=== PATIENT | male | born 1955 | race Hispanic/Latino ===

== ENCOUNTER → 2017-11-02 | Outpatient (CLI) | payer BC ==
[~2017-11-02] MED LIST: GADOBENATE DIMEGLUMINE 1 ML IV ONE; SODIUM CHLORIDE 0.9% 50ML 50 ML ONE
[2017-11-02 08:07] LABS: BLOOD UREA NITROGEN 15 mg/dL (7-26); BUN/CREATININE RATIO 15 (6-25); CREATININE, SERUM 1.01 mg/dL (0.72-1.25); EST GLOMERULAR FILTRATION RATE > 60 ML/MIN (60-)
--- NOTE | 2017-11-02 10:06 | Diagnostic Imaging Report ---
History: Follow-up pituitary tumor Comparison studies: Multiple MRI brain dating back 12/29/2011, the most recent 10/26/2016. TECHNIQUE: Thin section images of the sella consisting of coronal dynamic T1, sagittal and coronal T1 pre/post contrast, coronal T2. Whole brain DWI/ADC. Intravenous Contrast: 15 mL of MultiHance. FINDINGS: Pituitary gland: Large sellar/suprasellar macroadenoma, currently measuring approximately 2.6 x 1.6 x 1.7 cm (SI-AP-Trans) measurements may slightly vary depending on the plain in which the scan was performed, technical factors and measurements orientation in addition to changes in the lesion size; the lesion previously measured approximately 2.4 cm x 1.5 x 1.6 cm (SI x AP x TV) when using similar measurements orientation at this time for both studies. The maximum superior to inferior dimension remains in the range of 2.3 to 2.6 cm with about 2 to 3 mm difference in between the 2 studies. Again a small 4-mm intrinsically T1 hyperintense focus, located in the suprasellar cistern, posterior to and to the right of midline of the adenoma likely corresponds to the neurohypophysis. Sella turcica: Stable mild enlargement. Pituitary stalk: Displaced superiorly and anteriorly, inseparable from the superior margin of the adenoma. Unchanged. Optic chiasm: Persistent mild superior displacement by suprasellar extension of adenoma. No associated signal abnormalities within the optic chiasm. Cavernous sinuses: Mass abuts the margins of the left greater than right cavernous sinuses, unchanged minimal extension on the left. Normal flow void in the bilateral carotid arteries. Visualized brain parenchyma: Unremarkable. 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 IMPRESSION: Accounting for the differences in technique, scanned plane and measurements orientation there is minimal interval increase in the largest superior to inferior dimension of pituitary gland macroadenoma when compared to MRI of 10/26/2016. The study was interpreted by Drs. Davis and Concepcion. Signed by: Dr. Bell Javier M.D. on 11/07/2017 8:30 AM
== END ==
LOC: MRI 07:20
PROVIDERS: ATTEND Radiology Neuroradiology
DX: D35.2 Benign neoplasm of pituitary gland (principal)
CPT/HCPCS: 36415; 70553; 82565; 84520

== ENCOUNTER 2021-12-25 11:47 | Emergency (ER) | payer BC, MEDICARE ==
[~2021-12-25] VITALS: Ht 170.2 cm; Wt 76.3 kg
[2021-12-25] MEDS ORDERED: PLAVIX75 MG PO (12:01)
[2021-12-25] MEDS ORDERED: ATORVASTATIN CA20 MG PO (12:01)
[2021-12-25] MEDS ORDERED: FAMCICLOVIR500 MG PO (12:11)
[2021-12-25] MEDS ORDERED: NEURONTIN100 MG PO (12:11)
[2021-12-25] MEDS ORDERED: PREDNISONE20 MG PO (12:11)
== END 2021-12-25 12:22 | disposition home or self-care (01) ==
LOC: FSED 11:55
DX: B02.9 Zoster without complications (principal); E78.5 Hyperlipidemia, unspecified; I25.10 Atherosclerotic heart disease of native coronary artery without angina pectoris; Z95.5 Presence of coronary angioplasty implant and graft
CPT/HCPCS: 99282

== ENCOUNTER 2025-04-15 19:33 | Emergency (ER) | payer MEDICARE ==
[~2025-04-15] VITALS: Ht 170.2 cm; Wt 76.7 kg
[~2025-04-15 19:33] MED LIST changes: +ATORVASTATIN CA20 MG PO; +FAMCICLOVIR500 MG PO; -GADOBENATE DIMEGLUMINE 1 ML IV ONE; +NEURONTIN100 MG PO; +PLAVIX75 MG PO; +PREDNISONE20 MG PO; -SODIUM CHLORIDE 0.9% 50ML 50 ML ONE
[2025-04-15] MEDS: HYDROCODONE/APAP 5MG-325MG TAB PO ONE (20:51)
[2025-04-15 22:37] VITALS: PULSE 56; RESP 18; TEMP 98
[2025-04-15 23:18] VITALS: BP 158/74; PULSE 56; RESP 18; O2SAT 99
== END 2025-04-15 23:00 | disposition home or self-care (01) ==
LOC: FSED 19:38
DX: S42.031A Displaced fracture of lateral end of right clavicle, initial encounter for closed fracture (principal); S80.211A Abrasion, right knee, initial encounter; W22.09XA Striking against other stationary object, initial encounter; Y93.01 Activity, walking, marching and hiking; Y92.89 Other specified places as the place of occurrence of the external cause; E78.5 Hyperlipidemia, unspecified; Z95.5 Presence of coronary angioplasty implant and graft
CPT/HCPCS: 99284